=== PATIENT | female | born 1945 | race Caucasian/White ===

== ENCOUNTER 2017-02-12 09:24 | Emergency (ER) | payer MEDICARE, OTHER ==
[~2017-02-12] VITALS: Ht 152.4 cm; Wt 70.0 kg
[2017-02-12 09:24] VITALS: BP 171/77; PULSE 62; RESP 16; TEMP 98.4; O2SAT 97
[2017-02-12] MEDS ORDERED: SIMV40TA PO (09:47)
[2017-02-12] MEDS ORDERED: LISI-519 PO (09:47)
--- NOTE | 2017-02-12 10:27 | PD ---
HPI Chief Complaint: Pain: Acute or Chronic Time Seen by Provider: 10:15 Travel History International Travel<30 days: No Contact w/Intl Traveler<30days: No Traveled to known affect area: No History of Present Illness HPI 71-year-old female presents to the emergency Department with complaint of left foot and ankle pain that started abruptly after coming home from the grocery store yesterday. She denies injury or strain. She said she went to take her shoe off and the pain started immediately. The pain is in the arch of her foot and up to the medial ankle. She denies paresthesias, loss of sensation, decreased range of motion, decreased strength to the affected extremity. She has been ambulatory on the affected extremity, but with walking on her toes. Pain is constant and there are no known relieving factors. She has tried dangling her foot to the side of the bed, elevating her foot, using a shoe support with no relief of symptoms. She has not taken any medications to alleviate her symptoms. Pain is constantly aggravated. Denies fever, chills, nausea, vomiting. Reports as a burning sensation. No known allergies. History of hypertension. Dr. Katelyn Mcfarland is primary care provider. No other modifying factors or associated signs and symptoms. PFSH Past Medical History Tetanus Vaccination: < 5 Years ?: Not Social History Alcohol Use: Yes Tobacco Use: No Allergies-Medications (Allergen,Severity, Reaction): Coded Allergies: No Known Allergies (Unverified , 02/12/17) Reported Meds & Prescriptions Reported Meds & Active Scripts Active Folding Walker/5" Wheels (Device) 1 Mis Mis 1 Ea .ROUTE DIRECTED Ibuprofen 600 Mg Tab 600 Mg PO Q8HR PRN Reported Lisinopril 5 Mg Tab 5 Mg PO DAILY Simvastatin 40 Mg Tab 40 Mg PO HS Review of Systems Except as stated in HPI: all other systems reviewed are Neg Physical Exam Narrative GENERAL: Well-nourished, well-developed patient, in no acute distress; afebrile , nontoxic-appearing SKIN: Warm and dry. HEAD: Atraumatic. Normocephalic. EYES: Pupils equal and round. No scleral icterus. No injection or drainage. ENT: Mucosa pink and moist. Airway patent. NECK: Trachea midline. CARDIOVASCULAR: Regular rate. RESPIRATORY: No accessory muscle use. GASTROINTESTINAL: Rounded. MUSCULOSKELETAL: Left ankle with point tenderness to the lateral aspect and down to the bottom of the arch of the foot; ankle and foot are without edema, erythema, ecchymosis; no obvious deformity. Left lower extremity supple and non -tense with 2+ pedal pulse and sensory intact and without erythema or edema. No obvious deformities. No clubbing. No cyanosis. No edema. NEUROLOGICAL: Awake and alert. Oriented 3. No obvious cranial nerve deficits. Motor grossly within normal limits. Normal speech. PSYCHIATRIC: Appropriate mood and affect; insight and judgment normal. Data Data Last Documented VS Vital Signs Date Time Temp Pulse Resp B/P Pulse Ox O2 Delivery O2 Flow Rate FiO2 02/12/17 09:24 98.4 62 16 171/77 97 Room Air Orders Ankle, Complete ([id number]) (02/12/17 10:03) Foot, Complete (Cem1lcl) (02/12/17 10:03) Ibuprofen (Motrin) (02/12/17 11:00) Crutches (02/12/17 10:51) MDM Medical Decision Making Medical Screen Exam Complete: Yes Emergency Medical Condition: Yes Medical Record Reviewed: Yes Differential Diagnosis Plantar fasciitis, heel spur, nonspecific foot pain Narrative Course 71-year-old female with left foot and ankle pain. Denies injury. Left lower external visible nontender 2+ pedal pulses and sensory intact without erythema or edema. Ibuprofen ordered. Left ankle x-ray and foot x-ray ordered. 1051: Left ankle and foot x-ray concludes: Last 24 hours Impressions Foot X-Ray 02/12/17 1003 Signed Impressions: Service Date/Time: Sunday, February 12, 2017 10:24 - CONCLUSION: 1. There is no evidence of acute fracture. Postsurgical changes as above. Herb Serrano MD Ankle X-Ray 02/12/17 1003 Signed Impressions: Service Date/Time: Sunday, February 12, 2017 10:20 - CONCLUSION: 1. Calcaneal spur There is no evidence of acute fracture. Herb Serrano MD Crutches provided for support to get home. Ibuprofen and walk her prescriptions provided for home. Instructed patient to follow up with podiatry. Patient verbalizes understanding and agreement with treatment plan. Patient is medically cleared and stable for discharge. Discussed reasons to return to the emergency department. Instructed patient to follow up with primary care provider. Patient agrees with treatment plan. The patients vital signs are stable and the patient is stable for outpatient follow-up and treatment. Patient discharged home, stable and in no acute distress. Diagnosis Primary Impression: Calcaneal spur, left foot Referrals: [employer] Primary Care Physician Patient Instructions: Crutch Instructions (ED), General Instructions, Heel Spur (ED) Additional Instructions: Ibuprofen or Tylenol as directed and as needed for pain and inflammation Avoid aggravating activity Crutches and/or walker for support Follow-up with podiatry Follow-up with primary care provider Return to the emergency department immediately with worsening of symptoms Med/Other Pt SpecificInfo: Prescription(s) given Scripts Folding Walker/5" Wheels 1 Mis Mis #1 Ea .route As Directed Prov:Linda Wilks 02/12/17 Ibuprofen 600 Mg [id number] Mg PO Q8HR PRN (PAIN) #20 TAB Ref 0 Prov:Linda Wilks 02/12/17 Disposition: 01 DISCHARGE HOME Condition: Stable Linda Wilks Feb 12, 2017 10:27
--- NOTE | 2017-02-12 10:38 | RADRPT ---
EXAM DATE/TIME: 02/12/2017 10:20 [facility] COMPARISON: No previous studies available for comparison. INDICATIONS : Left medial foot and ankle pain. No known injury. MEDICAL HISTORY : None. SURGICAL HISTORY : None. ENCOUNTER: Initial ACUITY: 1 day PAIN SCORE: 8/10 LOCATION: Left medial foot FINDINGS: There is no evidence of acute fracture. Bony mineralization is normal. Joint spaces are maintained. P ostsurgical changes are present in the fifth digit. A posterior calcaneal spur is present. CONCLUSION: 1. Calcaneal spur There is no evidence of acute fracture. Herb Serrano MD on February 12, 2017 at 10:36 Board Certified Radiologist. This report was verified electronically.
--- NOTE | 2017-02-12 10:39 | RADRPT ---
EXAM DATE/TIME: 02/12/2017 10:24 [facility] COMPARISON: No previous studies available for comparison. INDICATIONS : Left medial foot and ankle pain. No known injury. MEDICAL HISTORY : None. SURGICAL HISTORY : None. ENCOUNTER: Initial ACUITY: 1 day PAIN SCORE: 8/10 LOCATION: Left medial foot FINDINGS: There is no evidence of acute fracture. Bony mineralization is normal. Joint spaces are maintained. S crews are present in the head of the first metatarsal. CONCLUSION: 1. There is no evidence of acute fracture. Postsurgical changes as above. Herb Serrano MD on February 12, 2017 at 10:37 Board Certified Radiologist. This report was verified electronically.
[2017-02-12] MEDS ORDERED: IBUP-232 PO (10:51)
[2017-02-12] MEDS ORDERED: MISC-274 (10:52)
[2017-02-12] MEDS ORDERED: IBUPROFEN 600 MG TAB PO ONE (11:00)
== END 2017-02-12 11:06 | disposition home or self-care (01) ==
LOC: NEPB 09:24
DX: M77.32 Calcaneal spur, left foot (principal); I10 Essential (primary) hypertension
CPT/HCPCS: 73610; 73630; 99283; E0113

== ENCOUNTER → 2017-07-25 | Outpatient (CLI) | payer MEDICARE, OTHER ==
[~2017-07-25] MED LIST: IBUP-232 PO; LISI-519 PO; MISC-274; SIMV40TA PO
[2017-07-25 09:14] LABS: ANION GAP 7 MEQ/L (5-15); AST (GOT) 21 U/L (15-37); BICARBONATE 23.9 MEQ/L (21.0-32.0); BLOOD UREA NITROGEN 21 MG/DL (7-18); CHLORIDE 106 MEQ/L (98-107); GLOMERULAR FILTRATION RATE 65 ML/MIN (>89); GLUCOSE,FASTING 99 MG/DL (74-99); POTASSIUM 4.8 MEQ/L (3.5-5.1); SODIUM (NA) 137 MEQ/L (136-145)
[2017-07-25 09:15] LABS: ALT (GPT) 29 U/L (10-53)
[2017-07-25 09:18] LABS: ALKALINE PHOSPHATASE 65 U/L (45-117); HDL CHOLESTEROL 79.1 MG/DL (40.0-60.0); LDL CHOLESTEROL 71 MG/DL (0-99); TOTAL BILIRUBIN ADULT 0.6 MG/DL (0.2-1.0)
[2017-07-25 09:20] LABS: BASOPHIL % 0.9 % (0.0-2.0); EOSINOPHIL # 0.1 TH/MM3 (0-0.4); EOSINOPHIL % 2.6 % (0.0-4.0); HEMATOCRIT 41.5 % (35.0-46.0); HEMO FLAGS DIFF FINAL; LYMPH % 32.3 % (9.0-44.0); LYMPHOCYTE # 1.8 TH/MM3 (1.0-4.8); MEAN CELL VOLUME 94.7 FL (80.0-100.0); MEAN CORPUSCULAR HEMOGLOBIN 31.2 PG (27.0-34.0); MONO % 8.5 % (0.0-8.0); NEUT % 55.7 % (16.0-70.0); PLATELET COUNT 208 TH/MM3 (150-450); RED BLOOD COUNT 4.39 MIL/MM3 (4.00-5.30); RED CELL DISTRIBUTION WIDTH 13.5 % (11.6-17.2); WHITE BLOOD COUNT 5.4 TH/MM3 (4.0-11.0)
== END ==
LOC: ELAB 07:18
PROVIDERS: ATTEND Family Medicine
DX: E55.9 Vitamin D deficiency, unspecified (principal); Z13.6 Encounter for screening for cardiovascular disorders; Z13.220 Encounter for screening for lipoid disorders; Z13.29 Encounter for screening for other suspected endocrine disorder
CPT/HCPCS: 36415; 80053; 80061; 82306; 85025